=== PATIENT | female | born 1940 | race Caucasian/White ===

== ENCOUNTER 2019-02-16 16:24 | Emergency (ER) | payer MEDICARE ==
[2019-02-16 16:31] VITALS: BP 138/87
--- NOTE | 2019-02-16 17:24 | UC ---
Knee Pain HPI - HPI Summary HPI Summary: 78-year-old woman comes in with a chief complaint of right knee pain. Earlier today she tripped and fell and fell on her right side. She gradually developed lateral right knee pain. Pain is worse with ambulation and bending the knee. There is some swelling in the knee. Patient has been able to ambulate. She has not taken any medications for the pain. She did try ice which only helps minimally. - History of Current Complaint Chief Complaint: UCLowerExtremity Stated Complaint: KNEE INJURY Time Seen by Provider: 02/16/19 17:05 Pain Intensity: 5 - Allergies/Home Medications Allergies/Adverse Reactions: Allergies Allergy/AdvReac Type Severity Reaction Status Date / Time No Known Allergies Allergy Verified 02/16/19 16:32 PMH/Surg Hx/FS Hx/Imm Hx Previously Healthy: Yes - Surgical History Surgical History: Yes Surgery Procedure, Year, and Place: Oral Surgery Jun 2013 - Family History Known Family History: Positive: Non-Contributory - Social History Alcohol Use: Rare Substance Use Type: None Smoking Status (MU): Never Smoked Tobacco Review of Systems All Other Systems Reviewed And Are Negative: Yes Constitutional: Positive: Negative Skin: Positive: Negative Eyes: Positive: Negative ENT: Positive: Negative Respiratory: Positive: Negative Cardiovascular: Positive: Negative Gastrointestinal: Positive: Negative Motor: Positive: Negative Neurovascular: Positive: Negative Musculoskeletal: Positive: Other: - SEE HPI Neurological: Positive: Negative Psychological: Positive: Negative Is Patient Immunocompromised?: No Physical Exam Triage Information Reviewed: Yes Appearance: Well-Appearing, No Pain Distress, Well-Nourished Vital Signs: Initial Vital Signs Temp 98.1 F 02/16/19 16:27 Pulse 71 02/16/19 16:27 Resp 16 02/16/19 16:27 BP 138/87 02/16/19 16:27 Pulse Ox 100 02/16/19 16:27 Vital Signs Reviewed: Yes Eye Exam: Normal Eyes: Positive: Conjunctiva Clear Neck: Positive: Supple Respiratory: Positive: No respiratory distress Musculoskeletal: Positive: Other: - The right knee has some minimal effusion primarily in the lateral aspect. She is tender in the lateral aspect. Knee is stable to exam negative Mi's. No ecchymosis. Neurological: Positive: Alert Psychological: Positive: Age Appropriate Behavior Skin Exam: Normal Knee Pain Course/Dx - Course Course Of Treatment: Patient Name: DORETHA PEREZ Medical Record#: [id number] Ordering Physician: Leodan Draper MD Acct.#: [id number] : 1940 Age: 78 Sex: F Location: [facility] Exam Date: 02/16/19 163 ADM Status: REG ER Order Information: KNEE RIGHT 4+ VWS Accession Number: [id number] CPT: 23379 INDICATION: Right lateral knee pain after a fall COMPARISON: None TECHNIQUE: 4 view radiograph of the right knee. FINDINGS: The visualized bones are well-corticated and properly aligned. The joint spaces are properly maintained. There is a small suprapatellar joint effusion. There is no acute fracture, dislocation or other focal bony abnormality. IMPRESSION: Small surgical or joint effusion in this otherwise normal-appearing knee. If the patient's symptoms persist, follow-up imaging is recommended. <Electronically signed by Hieu Ramirez MD in OV> 02/16/19 1710 I discussed the x-rays with the patient. An Curtis wrap was placed on the right knee by nursing patient neurovascular intact after placement of the Curtis wrap. Plan is to treat with ibuprofen and ice and rest. Patient has her own cane which she plans to use. Follow-up with orthopedics. - Differential Dx/Diagnosis Provider Diagnosis: Effusion, right knee, Right knee pain Discharge - Sign-Out/Discharge Documenting (check all that apply): Patient Departure All imaging exams completed and their final reports reviewed: Yes - Discharge Plan Condition: Stable Disposition: HOME Patient Education Materials: Swollen Knee Joint (ED), Knee Pain (ED) Referrals: Deny Torres MD [Primary Care Provider] - Wilian Veronica MD [Medical Doctor] - Additional Instructions: FOLLOW UP WITH ORTHOPEDICS IF NOT COMPLETELY IMPROVED. GET RECHECKED SOONER IF YOUR CONDITION WORSENS OR ANY QUESTIONS OR CONCERNS. - Billing Disposition and Condition Condition: STABLE Disposition: Home
[2019-02-16] MEDS ORDERED: Ibuprofen TAB* 400 MG PO ONE (17:32)
== END 2019-02-16 17:55 | disposition home or self-care (01) ==
LOC: UCEAST 16:24
DX: M25.561 Pain in right knee (principal); M25.461 Effusion, right knee
CPT/HCPCS: 99202; A9270-GY; G0463

== ENCOUNTER 2019-09-23 08:00 | Emergency (ER) | payer MEDICARE ==
--- OUTSIDE RECORDS SUMMARY | 2019-09-23 08:07 | XMS REPORT | Continuity of Care Document ---
:1940 External Reference #:[id number] Author Name María Rod PA-C Address [address] [place] [address] Care Team Providers Name Role Phone Martha Townsend MD - Family Medicine Care Team Information [employer] Problems Description No Information Available Social History Type Date Description Comments Sex Unknown Tobacco Use Start: Unknown Never Smoked Cigarettes Tobacco Use Start: Unknown has never smoked cigars Tobacco Use Start: Unknown has never smoked a pipe Smokeless Tobacco has never used smokeless tobacco ETOH Use Currently rarely consumes alcohol Tobacco Use Start: Unknown Patient has never smoked Smoking Status Reviewed: 07/31/19 Patient has never smoked Allergies, Adverse Reactions, Alerts Description No Known Drug Allergies Medications Active Medications SIG Qnty Indications Ordering Provider Date Barrera Aspirin Ec Low 1 by mouth every Unknown Dose day 81mg Tablets DR Irineo Kim daily Unknown Immunizations Description No Information Available Vital Signs Date Vital Result Comment 08/01/2019 11:29am Weight 88.31 lb Weight 40.059 kg Height 58 inches 4'10" Height in cm's 147.3 cm BMI (Body Mass Index) 18.5 kg/m2 12/03/2006 9:26am BP Systolic 103 mmHg BP Diastolic 62 mmHg Heart Rate 70 /min Respiratory Rate 16 /min Results Description No Information Available Procedures Date Code Description Status 08/01/2019 88122 Binocular Microscopy Completed 08/01/2019 38514 Fiberoptic Laryngoscopy Completed Medical Devices Description No Information Available Encounters Type Date Location Provider Dx Diagnosis Office Visit 08/01/2019 [place],After María Rod, H61.23 Impacted cerumen , 11:00a 07/27/07 [facility] bilateral R49.8 Other voice and resonance disorders J31.0 Chronic rhinitis Assessments Date Code Description Provider 08/01/2019 H61.23 Impacted cerumen, bilateral María Rod PA-C 08/01/2019 R49.8 Other voice and resonance disorders María Rod PA-C 08/01/2019 J31.0 Chronic rhinitis María Rod PA-C Plan of Treatment 08/01/2019 - ASTON Benites-CH61.23 Impacted cerumen, bilateralComments: Squamous debris and scant cerumen removed from the canals today under the binocular microscope. This was well tolerated. Hopefully this will improve the pruritus, but I have encouraged her to continue with avocado or olive oil as a moisturizer. She does not want to use mineral oil due to the fact it that contains some petroleum.R49.8 Other voice and resonance disordersComments: She is reassured that laryngoscopy is normal without neoplasm or abnormal vocal cord movement. She will continue to gargle with saline which she makes at home. She is encouraged to call if she notices any changes in her voice or dysphagia.J31.0 Chronic rhinitisComments:12/03/2006 - SALINE NASAL IRRIGATION 2 Functional Status Description No Information Available Mental Status Description No Information Available Referrals Description No Information Available
[2019-09-23 08:42] VITALS: BP 137/77
--- NOTE | 2019-09-23 09:26 | UC ---
Skin Complaint HPI - HPI Summary HPI Summary: PATIENT PINCHED HER LEFT THIRD FINGER IN A PIECE OF FURNITURE 5 OR 6 DAYS AGO WHILE SHE WAS CLEANING AT HER HOUSE. DEVELOPED A BLOOD BLISTER AND IS CONCERNED THAT IT IS STILL THERE. NO PAIN, REDNESS, DRAINAGE. NO FEVER. - History of Current Complaint Chief Complaint: UCUpperExtremity Time Seen by Provider: 09/23/19 08:22 Stated Complaint: FINGER INJURY Hx Obtained From: Patient Onset/Duration: Sudden Onset, Lasting Days, Still Present Timing: Constant Onset Severity: Mild Current Severity: Mild Pain Intensity: 0 Pain Scale Used: 0-10 Numeric Location: Hand (Left) - DISTAL LEFT 3RD FINGER Aggravating Factor(s): Nothing Alleviating Factor(s): Nothing - Allergy/Home Medications Allergies/Adverse Reactions: Allergies Allergy/AdvReac Type Severity Reaction Status Date / Time No Known Allergies Allergy Verified 09/23/19 08:45 Home Medications: Home Medications Aspirin 325 mg PO Q6H PRN 04/03/14 [History Confirmed 09/23/19] PMH/Surg Hx/FS Hx/Imm Hx Psychological History: Anxiety - Surgical History Surgical History: Yes Surgery Procedure, Year, and Place: Oral Surgery Jun 2013 - Family History Known Family History: Positive: Non-Contributory - Social History Alcohol Use: Rare Substance Use Type: None Smoking Status (MU): Never Smoked Tobacco Review of Systems All Other Systems Reviewed And Are Negative: Yes Constitutional: Positive: Negative Skin: Positive: Other - BLOOD BLISTER LEFT 3RD FINGER Respiratory: Positive: Negative Cardiovascular: Positive: Negative Gastrointestinal: Positive: Negative Musculoskeletal: Positive: Negative Physical Exam Triage Information Reviewed: Yes Appearance: Well-Appearing, No Pain Distress, Well-Nourished Vital Signs: Initial Vital Signs Temp 97.2 F 09/23/19 08:12 Pulse 68 09/23/19 08:12 Resp 18 09/23/19 08:12 BP 137/77 09/23/19 08:12 Pulse Ox 100 09/23/19 08:12 Vital Signs Reviewed: Yes Eyes: Positive: Conjunctiva Clear ENT: Positive: Hearing grossly normal Neck: Positive: Supple Respiratory: Positive: No respiratory distress, No accessory muscle use Cardiovascular: Positive: Pulses Normal Abdomen Description: Positive: Soft Musculoskeletal: Positive: ROM Intact, No Edema Neurological: Positive: Alert Psychological: Positive: Age Appropriate Behavior Skin: Positive: Other - 6MM X 3MM HEALING BLOOD BLISTER DISTAL LEFT 3RD FINGER. NOT TENDER. NO ERYTHEMA Course/Dx - Course Course Of Treatment: HEALING BLOOD BLISTER DISTAL LEFT THIRD FINGER. NO SIGN OF INFECTION. NO ACUTE INTERVENTION INDICATED. FOLLOW-UP PCP IF NEEDED. - Diagnoses Provider Diagnosis: Blood blister Discharge ED - Sign-Out/Discharge Documenting (check all that apply): Patient Departure All imaging exams completed and their final reports reviewed: No Studies - Discharge Plan Condition: Stable Disposition: HOME Referrals: Deny Torres MD [Primary Care Provider] - 1 Week Additional Instructions: YOU HAVE A BLOOD BLISTER WHICH IS HEALING. THERE IS NO SIGN OF INFECTION. NO ACUTE INTERVENTION INDICATED FOR THIS CONDITION. IT WILL RESOLVE ON ITS OWN WITH TIME. IT WILL TAKE WEEKS FOR THIS TO GO AWAY BUT IT SHOULD NOT CAUSE PAIN. NO NEED FOR ANY BANDAGES. SEEK REEVALUATION IF YOU DEVELOP INCREASING PAIN, SPREADING REDNESS OF THE SKIN , PURULENT DRAINAGE, FEVER, SWELLING OR ANY OTHER CONCERNING SYMPTOMS. - Billing Disposition and Condition Condition: STABLE Disposition: Home
== END 2019-09-23 09:44 | disposition home or self-care (01) ==
LOC: UCEAST 08:00
DX: S60.423A Blister (nonthermal) of left middle finger, initial encounter (principal); W23.1XXA Caught, crushed, jammed, or pinched between stationary objects, initial encounter; Y92.009 Unspecified place in unspecified non-institutional (private) residence as the place of occurrence of the external cause
CPT/HCPCS: 99211; G0463